=== PATIENT | female | born 1965 | race Caucasian/White ===

== ENCOUNTER 2017-07-20 05:54 | Day surgery (SDC) | payer OTHER ==
[2017-07-20] MEDS ORDERED: MULTIVITAMINS (07:08)
[2017-07-20 07:50] VITALS: BP 131/71; PULSE 56; RESP 18
[2017-07-20] MEDS ORDERED: MIDAZOLAM 1 MG/ML 2 ML INJ ONE ×2 (08:28→08:29)
[2017-07-20] MEDS ORDERED: FENTAnyl 50 MCG/ML VIAL ONE (08:28)
--- NOTE | 2017-07-20 08:29 | OPPN ---
Date/Time of Note Date/Time of Note DATE: 07/20/17 TIME: 08:27 Operative Report Preoperative Diagnosis Screening Postoperative Diagnosis Internal hemorrhoids No colon neoplasm was identified Operation/Procedure Performed Colonoscopy Surgeon see signature line dental assistant medical assistant None Anesthesia: moderate sedation Estimated blood loss: none Transfusion Required none Specimen None Grafts/Implants none Complications none ABA DURAN MD Jul 20, 2017 08:29
[2017-07-20 08:43] VITALS: BP 111/58; RESP 20
--- NOTE | 2017-07-20 09:46 | GILP ---
DATE OF PROCEDURE: NAME OF PROCEDURE: Colonoscopy. SURGEON: Aba Borja MD. PREOPERATIVE DIAGNOSIS: Screening colonoscopy. POSTOPERATIVE DIAGNOSES 1. Colonoscopy all the way to the cecum. 2. Internal hemorrhoids. 3. No colon neoplasm was identified. INDICATION FOR THE PROCEDURE: Ms. Tanvi Peterson is a 52-year-old female patient who was sched uled for screening colonoscopy. The procedure and possible complications were well explained to the patient. The patient understood and consented to the procedure. DESCRIPTION OF PROCEDURE: Under the influence of fentanyl and Versed, the colonoscope was carefully introduced in the rectum and under direct vision, it was advanced all the way to the cecum. FINDINGS: The patient had internal hemorrhoids. No colon neoplasm was identified. She tolerated the procedure very well and there was no complication from the procedure. At the end of the procedures, she was awake with stable vital signs and she was discharged home to the care of her family. IMPRESSION: 1. Colonoscopy all the way to the cecum. 2. No colon neoplasm was identified. PLAN: Next screening colonoscopy in 10 years. Dictated By: ABA FERGUSON/DEEP Conf#: [id number] DID#: [id number]
== END 2017-07-20 10:26 | disposition home or self-care (01) ==
LOC: GIL 05:54
PROVIDERS: ATTEND Internal Medicine Gastroenterology
DX: Z12.11 Encounter for screening for malignant neoplasm of colon (principal); K64.8 Other hemorrhoids
CPT/HCPCS: 45378; J2250; J3010